=== PATIENT | male | born 1985 | race Caucasian/White ===

== ENCOUNTER 2021-08-16 07:57 | Outpatient (REF) | payer OTHER, SELFPAY ==
[2021-08-16 09:27] LABS: MANUAL DIFF FLAG NO
[2021-08-16 10:02] LABS: Basophils Absolute Auto 0.1 X10*3/uL (0.0-0.2); Basophils Percent Auto 0.7 % (0-2); Eosinophils Absolute Auto 0.3 X10*3/uL (0.0-0.4); Eosinophils Percent Auto 4.2 % (0-4); Hematocrit 40.9 % (42.0-52.0); Hemoglobin 12.7 g/dl (14.0-18.0); Imm Gran Abs Auto 0.02 X10*3/uL (0.00-0.03); Imm Gran Pct Auto 0.2 % (0.0-0.4); Lymphocytes Percent Auto 25.1 % (20-40); Mean Corpuscular HGB Conc 31.1 g/dl (31.0-36.0); Mean Corpuscular Hemoglobin 25.4 pg (27.0-33.0); Mean Corpuscular Volume 81.8 fL (80.0-98.0); Mean Platelet Volume 11.2 fL (9.4-12.4); Monocytes Absolute Auto 0.9 X10*3/uL (0.1-1.2); Monocytes Percent Auto 11.4 % (2-11); Neutrophils Absolute Auto 4.7 x10*3/uL (2.0-8.3); Neutrophils Percent Auto 58.4 % (45-73); Platelet Count 238 X10*3/uL (160-400); White Blood Count 8.1 X10*3/uL (4.8-10.8)
[2021-08-16 11:00] LABS: Alanine Aminotransferase 16 U/L (0-40); Albumin Level 3.8 g/dL (3.5-5.0); Alkaline Phosphatase 61 U/L (39-117); Anion Gap 11 (12-20); Aspartate Amino Transferase 14 U/L (5-37); Bilirubin Total 0.4 mg/dL (0.0-1.0); Blood Urea Nitrogen 18 mg/dL (9-16); C Reactive Protein 0.52 mg/dL (< or = 0.50); Calcium 9.5 mg/dL (8.4-10.2); Carbon Dioxide 28 mmol/L (22-29); Chloride 109 mmol/L (96-108); Estimated Glomerular Filt Rate > 60; Glucose Random 95 mg/dL (60-115); HBS Num1 62.67 mIU/mL (0-7.99); HBc Num1 0.04 S/CO (0.00-0.79); Hepatitis B Core Antibody Nonreactive (Nonreactive); Potassium 4.7 mmol/L (3.3-5.1); Sodium 143 mmol/L (135-145); Total Protein 6.3 g/dL (6.5-8.0); ~Hepatitis B Surface Antibody REACTIVE (Nonreactive)
[2021-08-16 11:04] LABS: Hepatitis B Surface Antigen Negative (Negative); Vitamin D 25-OH Total 18.5 ng/mL (>30)
[2021-08-16 11:11] LABS: Folate 7.7 ng/mL (> or = 4.0); Vitamin B12 324 pg/mL (200-900)
[2021-08-17 08:13] LABS: Hepatitis A Antibody IgG Nonreactive (Nonreactive)
[2021-08-18 11:27] LABS: Transglutaminase IgA <1.0 U/mL
[2021-08-18 13:37] LABS: Immunoglobulin A 203 mg/dL (47-310)
[2021-08-19 07:51] LABS: TS Negative Control Passed; TS Panel A 1; TS Panel B 0; TS Positive Control Passed; TSpotTB Negative (Negative)
== END 2021-08-16 07:58 | disposition home or self-care (01) ==
LOC: HO.LAB 07:57
PROVIDERS: PCP Internal Medicine; Visit Provider Internal Medicine Gastroenterology
DX: K50.90 Crohn's disease, unspecified, without complications (principal)
CPT/HCPCS: 36415; 80053; 82306; 82607; 82746; 82784; 85025; 86140; 86364; 86481; 86704; 86706; 86708; 87340; 99202

== ENCOUNTER 2021-10-11 09:23 | Outpatient (REF) | payer OTHER, SELFPAY ==
--- NOTE | ~2021-10-11 | MR_ITS ---
EXAMINATION: MR OF THE ABDOMEN AND PELVIS WITH AND WITHOUT CONTRAST CLINICAL INFORMATION: Crohn's disease. COMPARISON: None TECHNIQUE: Sagittal, axial and coronal sequences through the abdomen and pelvis following 1.5 L of oral Breeza contrast and with and without 10 mL intravenous Gadavist contrast. FINDINGS: The stomach is normal. There are abnormal loops of small bowel seen in the left mid abdomen that demonstrate mild dilatation, wall thickening, wall edema, and enhancement. Small bowel loops measure up to 3 to 3.5 cm. Appearance is suggestive of active inflammatory bowel disease. There is question of mild involvement with wall thickening of the distal ileum in the right lower quadrant. There is stool in the cecum and proximal right colon. The large bowel is otherwise normal. The rectum is normal. The appendix is not seen. There are small, small bowel mesentery lymph nodes. No prominent vasa recta, enlarged lymph nodes, or ascites. The lung bases are clear. The liver, spleen, pancreas, adrenal glands, kidneys, and gallbladder are normal. The bladder is unremarkable.. The prostate gland is normal. Vascular structures are normal. No hernia is seen. The bony structures are unremarkable. MR/MR abdomen wo/w con IMPRESSION: Active inflammatory bowel disease of the proximal small bowel in the left mid abdomen and the distal small bowel in the right lower quadrant.
--- NOTE | ~2021-10-11 | MR_ITS ---
EXAMINATION: MR OF THE ABDOMEN AND PELVIS WITH AND WITHOUT CONTRAST CLINICAL INFORMATION: Crohn's disease. COMPARISON: None TECHNIQUE: Sagittal, axial and coronal sequences through the abdomen and pelvis following 1.5 L of oral Breeza contrast and with and without 10 mL intravenous Gadavist contrast. FINDINGS: The stomach is normal. There are abnormal loops of small bowel seen in the left mid abdomen that demonstrate mild dilatation, wall thickening, wall edema, and enhancement. Small bowel loops measure up to 3 to 3.5 cm. Appearance is suggestive of active inflammatory bowel disease. There is question of mild involvement with wall thickening of the distal ileum in the right lower quadrant. There is stool in the cecum and proximal right colon. The large bowel is otherwise normal. The rectum is normal. The appendix is not seen. There are small, small bowel mesentery lymph nodes. No prominent vasa recta, enlarged lymph nodes, or ascites. The lung bases are clear. The liver, spleen, pancreas, adrenal glands, kidneys, and gallbladder are normal. The bladder is unremarkable.. The prostate gland is normal. Vascular structures are normal. No hernia is seen. The bony structures are unremarkable. MR/MR pelvis wo/w con IMPRESSION: Active inflammatory bowel disease of the proximal small bowel in the left mid abdomen and the distal small bowel in the right lower quadrant.
== END 2021-10-11 09:24 | disposition home or self-care (01) ==
LOC: HO.MRI 09:23
PROVIDERS: Visit Provider Internal Medicine Gastroenterology
DX: K50.90 Crohn's disease, unspecified, without complications (principal)
CPT/HCPCS: 72197; 74183; A9585

== ENCOUNTER → 2021-12-20 08:40 | Outpatient (BNVA) | payer OTHER, SELFPAY | PROVIDERS: PCP Internal Medicine; Visit Provider Internal Medicine Gastroenterology | DX: K50.90 Crohn's disease, unspecified, without complications (principal); D64.9 Anemia, unspecified | CPT/HCPCS: 99212 ==

== ENCOUNTER 2022-04-29 08:16 | Day surgery (SDC) | payer OTHER, SELFPAY ==
[2022-04-17 14:19] VITALS: BMI 26.4
--- NOTE | 2022-04-29 08:32 | MHC.SHP ---
Pre-Procedural Eval Section A Date of Service: 04/29/22 The patient is an INPATIENT: No The History & Physical has been completed within 30 days and I have reviewed it.: No Section B Chief Complaint: anemia,crohns Details of Present Illness: COLON CANCER SCREENING, follow-up of Crohn's disease Relevant Family History (Specify if Yes): No Relevant Social History: None Present Medications: see Short Stay Collaborative assessment Medical History: Significant History (Crohn's disease, anemia, former smoker) History of Previous Operations: Relevant previous surgery/procedure and date(s) (H/O exploratory laparotomy Hx of appendectomy Hx of resection of small bowel) Allergies: Allergies Allergy/AdvReac Type Severity Reaction Status Date / Time bee pollen Allergy Intermediate swelling/throat Verified 04/17/22 14:17 tightness clarithromycin [From Biaxin] Allergy Intermediate itching/hiv Verified 04/17/22 14:17 es erythromycin base Allergy Intermediate itching/hiv Verified 04/17/22 14:17 [From Erythrocin] es morphine Allergy Intermediate itching/hiv Verified 04/17/22 14:17 es Penicillins Allergy Intermediate itching/hiv Verified 04/17/22 14:17 es Review of Systems Sugical H&P ROS: Negative: Constitution, Cardiovascular, Respiratory and Gastrointestinal Exam Surgical H&P Exam: Normal: Heart, Normal: Lungs, Normal: Extremities and Normal: Abdomen Plan Diagnosis/Plan: Unchanged I have reviewed the history and physical and performed a pertinent physical examination on my patient. No changes have occurred unless specified.
--- NOTE | 2022-04-29 08:33 | P.BOP_ITS ---
Brief Operative Note Date of Service: 04/29/22 Pre-op diagnosis: Colon cancer screening, follow-up of Crohn's disease Post-op diagnosis: other (Crohn's disease, hemorrhoids) Procedure: COLONOSCOPY TO CECUM WITH BIOPSIES Surgeon: Tariq Naidu MD Anesthesia: MAC Was an Acetylene Cylinder Packing Mixer used for this Procedure?: Yes Acetylene Cylinder Packing Mixer: Kinsey Wong Estimated blood loss (mL): 0 Pathology: other (A. TERMINAL ILEUM B. RIGHT COLON BIOPSIES C. TRANSVERSE COLON BIOPSIES D. LEFT COLON BIOPSIES E. RECTAL BIOPSIES) Condition: stable Disposition: PACU
--- NOTE | 2022-04-29 08:33 | P.OP_ITS ---
Operative Note Operative Note Date of Service: 04/29/22 Narrative: Pre-op diagnosis: Colon cancer screening, follow-up of Crohn's disease Post-op diagnosis:?other (Crohn's disease, hemorrhoids) Surgeon: Tariq Naidu MD Anesthesia:?MAC COLONOSCOPY TILL CECUM WITH BIOPSIES Consent: Indications for the procedure and potential complications of bleeding, perforation, reaction to medications and missed diagnosis were discussed with the patient and informed consent was obtained. Instrument: Olympus PCF H 190 L variable stiffness pediatric colonoscope Monitoring: Vital signs and clinical assessment, intermittent blood pressure monitoring, continuous EKG monitoring, Pulse oximetry and Carbon Dioxide monitoring were done throughout the procedure. Colon withdrawl time was 34 minutes. Procedure: The patient was placed in the left lateral decubitis position and pre-procedure medications were administered. After a digital rectal examination of the ano-rectum, the video colonoscope was inserted into the rectum and advanced through the colon to the cecum. The colonoscope was slowly withdrawn in a retrograde panoramic fashion and the colon mucosa was carefully examined including a retroflexed view of the rectum. Findings and interventions are described below. Procedure Difficulty: Without difficulty Pt was placed in the supine position to facilitate intubation of TI Findings: Terminal Ileum: Distal 6-7 cms was examined and showed scattered 0.5 to 1 cms ulcers - multiple biopsies were obtained. Cecum: Normal Ascending Colon: Normal Transverse Colon: Normal Descending Colon: Normal Sigmoid Colon: Normal Rectum: Normal Ano-rectum: Moderate internal hemorrhoids Colon preparation: Fair despite copious irrigation and poor in the left colon due to undigested vegetable matter which could not be suctioned (Of note - pt was given 2 fleet enemas prior to the procedure) Impression and Post Procedure Diagnosis: Colonoscopy Findings: No polyps were detected Distal 6-7 cms of TI was examined and showed scattered 0.5 to 1 cms ulcers - mu ltiple biopsies were obtained. Normal colon mucosa without inflammation - Random biopsies obtained from the TI and colon Moderate hemorrhoids on retroflexed exam. Plan: Await pathology results Patient has an appointment on 05/16/22 in the [facility] with Tariq Naidu M.D. Repeat Colonoscopy interval based on path results - in 2 years for FU of Crohn's disease (Adult colonoscope and Bisacodyl 10 mg daily x 5 days prior to future colonoscopies. Above findings were reviewed with the patient.
[2022-04-29 08:35] VITALS: BP 117/71; PULSE 75; RESP 18; TEMP 36.3; O2SAT 97; BMI 26.4
--- NOTE | 2022-04-29 08:50 | HO.ANESPROP2 ---
HPI - Anesthesia Eval Consult details Narrative: 36 yo male patient for colonoscopy PMFSH Active Problems Active Problems: All Active Problems (Updated 04/17/22 @ 14:18 by Karina Bravo RN) Crohn's disease (Acute) Anemia (Acute) Diastolic hypertension (Acute) Urticaria (Acute) Sleep disturbance (Acute) Seasonal allergies (Acute) Former smoker (Acute) Past Medical History Medical History Ankle fracture Family history of anesthesia complication Former smoker Family History Family History Other Arthritis Diabetes Fibromyalgia HTN (hypertension) Laryngeal cancer Obesity Parkinson disease Family history of problems with anesthesia: No Surgical History Surgical History H/O colonoscopy H/O exploratory laparotomy Hx of appendectomy Hx of resection of small bowel History of Problems with Anesthesia: No Social History Social History (Updated 04/29/22 @ 08:52 by Verna Zhang MD) Household Members: None Are you a primary home health care case manager to a significant other at home: No Do you presently have visiting nurse or other home services: No Alcohol intake: current Alcohol intake frequency: a few times a month Patient Tobacco Use Status: Former Tobacco user Quit Date: age 26 Use of substances other than those prescribed or required for medical reasons: Yes Substance Use Type: Marijuana Substance Use Frequency: Occasionally Last Used Substance: Days (ago) Have you been hit, kicked, punched, or otherwise hurt by someone within the past year? If so, by whom?: No Are you DNR?: No Advance Directives: No Advance Directives Information Provided: Yes (brochure mailed) Advance Directives on File: No Recently lost weight without trying: No Eating poorly because of decreased appetite: No Nutrition Risks: No Nutritional Risk Poor oral hygiene: No Meds Allergies Allergy/AdvReac Type Severity Reaction Status Date / Time bee pollen Allergy Intermediate swelling/throat Verified 04/17/22 14:17 tightness clarithromycin [From Biaxin] Allergy Intermediate itching/hiv Verified 04/17/22 14:17 es erythromycin base Allergy Intermediate itching/hiv Verified 04/17/22 14:17 [From Erythrocin] es morphine Allergy Intermediate itching/hiv Verified 04/17/22 14:17 es Penicillins Allergy Intermediate itching/hiv Verified 04/17/22 14:17 es Active Medications: Current Medications Sodium Biphosphate/Sodium Phosphate (Sodium Phosphate,Swisher-Dibasic 133 Ml Enema) 133 ml LA ONCE PRN PRN Reason: Poor Colonoscopy Prep Results Sodium Biphosphate/Sodium Phosphate (Sodium Phosphate,Swisher-Dibasic 133 Ml Enema) 133 ml LA ONCE PRN PRN Reason: Poor Colonoscopy Prep Results Exam Exam Date and Time: April 29, 2022 0850 Height,Weight and Vital Signs: Height 6 ft Weight 88.451 kg Last Vital Signs Temp 97.4 F 04/29/22 08:35 Pulse 75 04/29/22 08:35 Resp 18 04/29/22 08:35 BP 117/71 04/29/22 08:35 Pulse Ox 97 04/29/22 08:35 O2 Del Method 04/29/22 08:35 Airway Mallampati Class: II TM Dist: >3cm Neck ROM: Full Loose/Missing/Broken Teeth: No (Denies broken or loose teeth) Heart: RRR Lungs: CTAB Assessment and Plan Assessment Anesthesia Assessment: Anesthesia Plan Discussed and Chart Reviewed Final Anesthetic Review Family History of Problems with Anesthesia: No History of Problems with Anesthesia: No NPO: Yes ASA Class: II Final Preanesthetic Review: No Changes in Pt Med Stat, Meds/Allgs Chart Reviewed, Consent Obtained/Reviewed and Anes Risks/Benef Reviewed Patient Risk: Low Procedure Risk: Low Assessment/Block/Sedation in SS: Assess/Block/Sedation-SS Anesthetic Plan Anesthetic Plan: MAC: Disposition: Standard PACU
[2022-04-29] MEDS: Sodium Phosphate,Mono-Dibasic 133 ML ENEMA PR ×2 (08:54)
[2022-04-29 10:30] VITALS: BP 102/61; PULSE 65; RESP 18; TEMP 36.2; O2SAT 97
[2022-04-29 10:45] VITALS: BP 99/65; PULSE 67; RESP 18; TEMP 36.2; O2SAT 97
[2022-04-29 11:00] VITALS: BP 102/61; PULSE 65; RESP 18; TEMP 36.3; O2SAT 97
== END 2022-04-29 11:50 | disposition home or self-care (01) ==
PROVIDERS: PCP Internal Medicine; Visit Provider Internal Medicine Gastroenterology
PROC: 0DJD8ZZ Inspection of Lower Intestinal Tract, Via Natural or Artificial Opening Endoscopic (ICD-10-PCS; CPT 45378; principal; 2022-04-29 09:20)
DX: Z12.11 Encounter for screening for malignant neoplasm of colon (principal); K63.3 Ulcer of intestine; K64.8 Other hemorrhoids; K50.00 Crohn's disease of small intestine without complications; D64.9 Anemia, unspecified; Z88.0 Allergy status to penicillin; Z88.5 Allergy status to narcotic agent
CPT/HCPCS: 45380; 88305

== ENCOUNTER → 2022-05-16 11:58 | Outpatient (BNVA) | payer OTHER, SELFPAY | PROVIDERS: PCP Internal Medicine; Visit Provider Internal Medicine Gastroenterology | DX: K50.90 Crohn's disease, unspecified, without complications (principal); D64.9 Anemia, unspecified | CPT/HCPCS: 99212 ==

== ENCOUNTER 2022-05-17 15:10 | Outpatient (REF) | payer OTHER, SELFPAY ==
[2022-05-17 15:29] LABS: MANUAL DIFF FLAG NO
[2022-05-17 15:45] LABS: Basophils Absolute Auto 0.1 X10*3/uL (0.0-0.2); Basophils Percent Auto 0.7 % (0-2); Eosinophils Absolute Auto 0.2 X10*3/uL (0.0-0.4); Eosinophils Percent Auto 2.4 % (0-4); Hematocrit 45.4 % (42.0-52.0); Hemoglobin 14.7 g/dl (14.0-18.0); Imm Gran Abs Auto 0.02 X10*3/uL (0.00-0.03); Imm Gran Pct Auto 0.3 % (0.0-0.4); Lymphocytes Absolute Auto 2.2 X10*3/uL (1.2-4.9); Lymphocytes Percent Auto 29.8 % (20-40); Mean Corpuscular HGB Conc 32.4 g/dl (31.0-36.0); Mean Corpuscular Hemoglobin 27.8 pg (27.0-33.0); Mean Corpuscular Volume 85.8 fL (80.0-98.0); Mean Platelet Volume 10.5 fL (9.4-12.4); Monocytes Absolute Auto 0.7 X10*3/uL (0.1-1.2); Monocytes Percent Auto 8.9 % (2-11); Neutrophils Absolute Auto 4.3 x10*3/uL (2.0-8.3); Neutrophils Percent Auto 57.9 % (45-73); Platelet Count 247 X10*3/uL (160-400); Red Blood Count 5.29 X10*6/uL (4.60-5.80); Red Cell Distribution Width 16.6 % (11.0-16.0); White Blood Count 7.4 X10*3/uL (4.8-10.8)
[2022-05-17 16:35] LABS: Alanine Aminotransferase 16 U/L (0-40); Albumin Level 4.2 g/dL (3.5-5.0); Alkaline Phosphatase 64 U/L (39-117); Anion Gap 10 (12-20); Aspartate Amino Transferase 16 U/L (5-37); Bilirubin Total 0.6 mg/dL (0.0-1.0); Blood Urea Nitrogen 15 mg/dL (9-16); C Reactive Protein 0.46 mg/dL (< or = 0.50); Calcium 9.6 mg/dL (8.4-10.2); Carbon Dioxide 30 mmol/L (22-29); Chloride 105 mmol/L (96-108); Estimated Glomerular Filt Rate > 60; Glucose Random 92 mg/dL (60-115); Potassium 4.3 mmol/L (3.3-5.1); Sodium 141 mmol/L (135-145); Total Protein 6.4 g/dL (6.5-8.0); Vitamin D 25-OH Total 24.8 ng/mL (>30)
[2022-05-21 19:32] LABS: TS Negative Control Passed; TS Panel A 1; TS Panel B 4; TS Positive Control Passed; TSpotTB Negative (Negative)
[2022-05-22 05:17] LABS: HIV AB/AG Nonreactive (Nonreactive); HIV Num 1 0.08 S/CO (0.00-0.99)
== END 2022-05-17 15:11 | disposition home or self-care (01) ==
LOC: HO.LAB 15:10
PROVIDERS: PCP Internal Medicine; Visit Provider Internal Medicine Gastroenterology
DX: Z11.4 Encounter for screening for human immunodeficiency virus [HIV] (principal); D64.9 Anemia, unspecified; K50.90 Crohn's disease, unspecified, without complications
CPT/HCPCS: 36415; 80053; 81335; 82306; 85025; 86140; 86481; 87389